=== PATIENT | female | born 1975 | race Caucasian/White ===

== ENCOUNTER 2017-04-14 13:37 | Outpatient (CLI) | payer BC ==
--- NOTE | 2017-04-14 14:29 | RAD ---
LUMBAR SPINE 2 VIEWS: HISTORY: M54.50, low back pain. COMPARISON: None. FINDINGS: There is posterior Jackie dmitry placement in the lumbar spine. Mild dextroscoliosis. Mild superior end plate deformities at T12 and L1 are present. IMPRESSION: Minimal dextroscoliosis with Jackie dmitry placement. POS: [facility]
== END 2017-04-14 13:38 | disposition home or self-care (01) ==
LOC: TBSIIMAG 13:37
PROVIDERS: ATTEND Neurological Surgery
DX: M54.5 Low back pain (principal); M41.9 Scoliosis, unspecified
CPT/HCPCS: 72100

== ENCOUNTER 2017-09-03 01:56 | Emergency (ER) | payer BC ==
[2017-09-03 02:16] LABS: Pregnancy Test - Urine (BHCG) Negative (Negative); Pregu Control Background? CLEAR/WHITE (CLR/WHITE); Pregu Control Bar Appear? YES (CONTROL BAR)
[2017-09-03 02:17] LABS: Bilirubin Negative (Negative); Blood, Urine Large (Negative); Clarity CLOUDY (Clear); Glucose, Urine (Dipstick) Negative (Negative); Leukocyte Negative (Negative); Nitrite Negative (Negative); Protein, Urine (Dipstick) Negative (Neg-Trace); Specific Gravity, Urine 1.011 (1.002-1.036); Urobilinogen 0.2 mg/dL (0.2-1.0); pH, Urine 7.5 (5.0-9.0)
[2017-09-03 02:19] LABS: Specific Gravity 1.011 (1.002-1.036)
[2017-09-03 02:27] LABS: #Basophils 0.1 thou/uL (0.0-0.2); #Eosinphils 0.2 thou/uL (0.0-0.7); #Monocytes 0.9 thou/uL (0.11-0.59); %Basophils 0.8 % (0.0-1.0); %Eosinophils 1.5 % (0.0-10.0); %Lymphocytes 16.2 % (21.0-51.0); %Monocytes 7.5 % (0.0-10.0); %Neutrophils 73.9 % (42.0-75.0); Hemoglobin 13.5 g/dL (12.0-16.0); Mean Corpuscular HGB CONC 33.7 g/dL (32.0-36.0); Mean Corpuscular Hemoglobin 30.5 pg (27.0-31.0); Mean Corpuscular Volume 90.3 fl (81.0-99.0); Mean Platelet Volume 6.6 fL (7.4-10.4); Platelet Count 223 thou/uL (130-400); RBC Distribution Width 11.6 % (11.5-14.5); Red Blood Cell (RBC) Count 4.44 mill/uL (4.20-5.40); White Blood Cell (WBC) Count 12.2 thou/uL (4.8-10.8)
[2017-09-03 02:49] LABS: ALT (SGPT) 18 U/L (8-55); AST (SGOT) 23 U/L (5-34); Albumin 4.3 g/dL (3.5-5.0); Alkaline Phosphatase 84 U/L (40-150); Anion Gap 12 mmol/L (10-20); BUN (Urea Nitrogen) 16 mg/dL (7.0-18.7); Bilirubin, Total 0.6 mg/dL (0.2-1.2); Calc. Creatinine Clearance 0 mL/min (70-130); Calcium 9.8 mg/dL (7.8-10.44); Carbon Dioxide 27 mmol/L (22-29); Chloride 102 mmol/L (98-107); Estimated GFR-MDRD 74; Globulin 3.2 g/dL (2.4-3.5); Glucose 113 mg/dL (70-105); Lipase 10 U/L (8-78); Potassium 3.9 mmol/L (3.5-5.1); Protein, Total 7.5 g/dL (6.0-8.3); Sodium 137 mmol/L (136-145)
[2017-09-03] MEDS ORDERED: Ketorolac Tromethamine 30 MG/ML VIAL ONE (04:46)
[2017-09-03 05:36] LABS: Bacteria/HPF None Seen HPF (None Seen); Hyaline Casts/LPF 0-3 HYALINE CAST LPF (0-3 Hyaline); RBC/HPF GREATER THAN 50-TNTC HPF (0-3); Squamous Epithelial 0-3 HPF (0-3); WBC/HPF 0-3 HPF (0-3)
--- NOTE | 2017-09-03 09:49 | CT ---
PRELIMINARY REPORT/[facility]/EMERGENCY AFTER HOURS PROCEDURE: EXAM: CT Abdomen and Pelvis Without Intravenous Contrast CLINICAL HISTORY: 41 years old, female; Left flank pain. TECHNIQUE: Axial computed tomography images of the abdomen and pelvis without intravenous contrast. Coronal refo rmatted images were created and reviewed. COMPARISON: No relevant prior studies available. FINDINGS: Lung bases: No acute findings. No mass. No consolidation. ABDOMEN: Liver: 9 mm simple cyst, posterior segment, right hepatic lobe. Gallbladder and bile ducts: No acute findings. No calcified stones. No ductal dilation. Pancreas: No acute findings. No ductal dilation. Spleen: No acute findings. No splenomegaly. Adrenals: No acute findings. No mass. Kidneys and ureters: Moderate left hydronephrosis secondary to 8 mm round proximal ureteral stone (se ace 2, image 46). Just superior to this (series 2, image 44) there appears to be a 3 mm ureteral sto ne. Mild perinephric fluid stranding. Several punctate left renal stones. No right hydronephrosis. Stomach and bowel: There is moderate colonic fecal retention. No obstruction. No mucosal thickening. PELVIS: Appendix: No findings to suggest acute appendicitis. Bladder: No acute findings. No stones. Reproductive: Unremarkable as visualized. ABDOMEN and PELVIS: Intraperitoneal space: No acute findings. No free air. No significant fluid collection. Bones/joints: [place]acios dmitry and screw fixation of dextroscoliotic lumbar spine. No acute fracture. No dislocation. Soft tissues: There is small, fat containing umbilical hernia. Vasculature: No acute findings. No abdominal aortic aneurysm. Lymph nodes: No acute findings. No enlarged lymph nodes. IMPRESSION: Moderate left hydronephrosis secondary to left ureteral stones as described. Thank you for allowing us to participate in the care of your patient. Dictated and Authenticated by: Taya Olson MD 09/03/2017 6:23 AM Central Time ([place] & [place]) FINAL REPORT CT ABDOMEN AND PELVIS NONCONTRAST: DATE: 09/03/17. TIME: Performed on emergency basis at 0506 hours. HISTORY: Left flank pain. FINDINGS: Agree with the preliminary report by Dr. Olson from [facility]. There is partial obstructi on at an oval 8 mm proximal left ureteral calculus. Additional nonobstructing left renal calculi are present. Lack of contrast limits evaluation for other abnormalities. POS: [facility]
== END 2017-09-03 07:03 | disposition home or self-care (01) ==
LOC: ERS 01:56
DX: N13.2 Hydronephrosis with renal and ureteral calculous obstruction (principal); G43.909 Migraine, unspecified, not intractable, without status migrainosus; Z79.899 Other long term (current) drug therapy
CPT/HCPCS: 36415; 74176; 80053; 81003; 81015; 81025; 83690; 85025; 96361; 96374; 96375; J1885; J2270

== ENCOUNTER 2017-09-05 15:35 | Outpatient (CLI) | payer BC ==
[2017-09-05 17:00] LABS: BHCG - Serum Negative (NEGATIVE); Pregs Control Background? CLEAR/WHITE (CLR/WHITE); Pregs Control Bar Appear? YES (CONTROL BAR)
== END 2017-09-05 15:36 | disposition home or self-care (01) ==
LOC: LABBT 15:35
PROVIDERS: ATTEND Urology
DX: Z01.818 Encounter for other preprocedural examination (principal); N13.2 Hydronephrosis with renal and ureteral calculous obstruction
CPT/HCPCS: 84703; 93005; 93010

== ENCOUNTER 2017-09-06 08:02 | Day surgery (SDC) | payer BC ==
[2017-09-05 16:05] VITALS: BMI 25.8
[2017-09-06] MEDS ORDERED: Scopolamine 1.5 mg/72 hour Patch ONE (08:40)
[2017-09-06] MEDS ORDERED: Midazolam HCl 2 mg/2 ml Vial ONE (08:40)
[2017-09-06] MEDS ORDERED: Levofloxacin 500 mg/D5W 100 ml Premix Bag ONE (08:40)
[2017-09-06] MEDS ORDERED: Ondansetron HCl/PF 4 MG/2 ML Vial ONE ×2 (08:41→11:53)
--- NOTE | 2017-09-06 10:16 | RAD ---
ABDOMEN ONE VIEW: HISTORY: Preop. COMPARISON: CT stone protocol from 09/03/2017. FINDINGS: There is a similar appearance of the left ureteral calculus. No further migration from the compariso n CT exam. Scoliosis hardware is in place. IMPRESSION: The left ureteral calculus is at the level of the L3 transverse process. POS: [facility]
[2017-09-06] MEDS ORDERED: Iothalamate Meglumine 60% 50 ML VIAL FS ONE (10:20)
[2017-09-06] MEDS ORDERED: Fentanyl 100 MCG/2 ML VIAL ONE (10:33)
[2017-09-06] MEDS ORDERED: Furosemide 20 MG/2 ML VIAL ONE (11:28)
[2017-09-06] MEDS ORDERED: PHENYLEPHRINE-NS 100 MCG/ML 10 ML SYRINGE ONE (11:53)
[2017-09-06] MEDS ORDERED: PROPOFOL 200 MG/20 ML VIAL ONE (11:53)
[2017-09-06] MEDS ORDERED: Dexamethasone 20 MG/5 ML VIAL ONE (11:53)
[2017-09-06] MEDS ORDERED: diphenhydrAMINE 50 MG/ML VIAL ONE (11:53)
--- NOTE | 2017-09-06 12:15 | OP ---
DATE OF SERVICE: 09/06/2017 PREOPERATIVE DIAGNOSES: Left proximal ureteral and renal stones. POSTOPERATIVE DIAGNOSES: Left proximal ureteral and renal stones. PROCEDURE: Cystoscopy, insertion of left ureteral stent, 6 x 28 and then left extracorporeal shock wave lithotripsy. SURGEON: Perla Bhatia M.D. ANESTHESIA: General laryngeal airway. FINDINGS: Placement of a 6 x 28 stent with proximal migration of the stone so that it was now in the renal pelvis and adequate fragmentation of all stones. COMPLICATIONS: No complications. ESTIMATED BLOOD LOSS: No blood loss. DRAINS: No drain remaining other than the internal double-J with a string. INDICATIONS: The patient is a 41-year-old female who was seen in the ER over the weekend with an obstructing stone and then seen in my office the day prior. She had been afebrile. Her urinalysis had shown no concern for bacteria, but she had persistent pain with nausea, so she was set up for urgent stent and as long as the urine remained clear and sterile we would proceed with stone therapy. The patient was brought into room by Anesthesia, laid on the table in the supine position. After receiving general anesthetic, legs placed in lithotomy position and perineum were prepped and draped in sterile fashion. Using a 21- [place] cystoscope and 30 degree lens urethra was traversed and the bladder inspected. No lesions were noted. The left ureteral orifice was intubated with a wire first and then the Pollack catheter advanced to the level of the proximal stone where the ureter was quite tortuous in this area, but a wire was able to navigate this and then straighten out the ureter with the Pollack as the Pollack was advanced over it and into the renal pelvis. Measurements were taken and a 6 x 28 was chosen. The wire was left in place and a 6 x 28 double- J was placed over the wire with good coil visualized in the renal pelvis via fluoroscopy and a good coil was visualized in the bladder via cystoscopy. Good efflux was noted from the stent, so the scope was broken apart carefully and bladder drained and removed so that the string remained in place and then was coiled and secured to the patient's right inner thigh. She was then returned to the supine position. She was then positioned such that the lithotripter could identify the stone in multiple planes. A total of 2500 shocks at a maximum power level of 5/6 at a maximum rate of 70 per minute for the large stone in 90 per minute for the smaller stones were delivered approximately 2000 shocks were delivered to the 1.2 cm stone which was in the same line of fire as the 2-3 mm one that had been more proximal to it originally except they moved together into the renal pelvis. Then, approximately 500 shocks were delivered to a 5 mm left upper pole stone. Good fragmentation was noted overall. The patient tolerated the procedure well and then was awakened and transferred to PACU in stable condition. JIA
[2017-09-06] MEDS ORDERED: HYDROcodone/Acetaminophen 5/325 mg Tablet ONE (13:55)
== END 2017-09-06 15:00 | disposition home or self-care (01) ==
LOC: SDC 08:02
PROVIDERS: ATTEND Urology
PROC: 0TF4XZZ Fragmentation in Left Kidney Pelvis, External Approach (ICD-10-PCS; principal; 2017-09-06)
PROC: 0T778DZ Dilation of Left Ureter with Intraluminal Device, Via Natural or Artificial Opening Endoscopic (ICD-10-PCS; principal; 2017-09-06)
PROC: 0TF7XZZ Fragmentation in Left Ureter, External Approach (ICD-10-PCS; principal; 2017-09-06)
DX: N13.2 Hydronephrosis with renal and ureteral calculous obstruction (principal); G43.909 Migraine, unspecified, not intractable, without status migrainosus; D50.9 Iron deficiency anemia, unspecified; G47.00 Insomnia, unspecified; Z79.899 Other long term (current) drug therapy
CPT/HCPCS: 74018; C1758; J1100; J1200; J1940; J1956; J2250; J2405; J2704; J3010; Q9961

== ENCOUNTER 2017-10-04 08:53 | Outpatient (CLI) | payer BC ==
[2017-10-04 10:17] LABS: #Basophils 0.1 thou/uL (0.0-0.2); #Eosinphils 0.3 thou/uL (0.0-0.7); #Lymphocytes 1.6 thou/uL (1.20-3.40); #Monocytes 0.6 thou/uL (0.11-0.59); #Neutrophils 2.7 thou/uL (1.40-6.50); %Basophils 1.9 % (0.0-1.0); %Eosinophils 5.9 % (0.0-10.0); %Lymphocytes 30.3 % (21.0-51.0); %Monocytes 11.3 % (0.0-10.0); %Neutrophils 50.6 % (42.0-75.0); Hemoglobin 13.1 g/dL (12.0-16.0); Mean Corpuscular HGB CONC 32.7 g/dL (32.0-36.0); Mean Corpuscular Hemoglobin 29.6 pg (27.0-31.0); Mean Corpuscular Volume 90.5 fL (78.0-98.0); Mean Platelet Volume 8.3 fL (7.4-10.4); Platelet Count 162 thou/uL (130-400); RBC Distribution Width 11.4 % (11.5-14.5); Red Blood Cell (RBC) Count 4.42 mill/uL (4.20-5.40); White Blood Cell (WBC) Count 5.3 thou/uL (4.8-10.8)
[2017-10-04 10:28] LABS: ALT (SGPT) 13 U/L (8-55); AST (SGOT) 14 U/L (5-34); Albumin 4.2 g/dL (3.5-5.0); Alkaline Phosphatase 71 U/L (40-150); Anion Gap 11 mmol/L (10-20); BUN (Urea Nitrogen) 16 mg/dL (7.0-18.7); Bilirubin, Total 0.6 mg/dL (0.2-1.2); Calc. Creatinine Clearance 0 mL/min (70-130); Calcium 9.4 mg/dL (7.8-10.44); Carbon Dioxide 26 mmol/L (22-29); Cardiac Risk 3.3 (Less than 4.5); Chloride 106 mmol/L (98-107); Cholesterol 214 mg/dl (< 200 Desired); Estimated GFR-MDRD Greater than 90; Glucose 90 mg/dL (70-105); HDL Cholesterol 65 mg/dL (>60 Neg Risk); LDL Cholesterol, Calculated 127 mg/dL; Potassium 4.1 mmol/L (3.5-5.1); Protein, Total 7.2 g/dL (6.0-8.3); Sodium 139 mmol/L (136-145); Triglycerides 109 mg/dL (Less than 150)
--- NOTE | 2017-10-04 11:26 | RAD ---
AP ABDOMEN: History: Renal calculus. Date: 10-04-17 Comparison: 09-06-17 FINDINGS: AP abdomen demonstrates patient with thoracolumbar Jackie type posterior rods in place. There is an area of calcification along the left paraspinal region compatible with long-term fusion changes. Some residual dextroscoliosis remains. This is unchanged since the previous exam. A moderate amount of stool is seen in the ascending colon. No evidence of radiopaque calculi seen. Previously visualized proximal left ureteral calculus is no longer visible. IMPRESSION: Resolved proximal left ureteral calculus. No other significant interval changes seen. POS: [facility]
== END 2017-10-04 08:54 | disposition home or self-care (01) ==
LOC: SCSRAD 08:53
PROVIDERS: ATTEND Urology
DX: Z00.00 Encounter for general adult medical examination without abnormal findings (principal); N20.0 Calculus of kidney
CPT/HCPCS: 36415; 74018; 80053; 80061; 84443; 85025